=== PATIENT | male | born 2000 | race Caucasian/White ===

== ENCOUNTER 2020-11-22 16:31 | Emergency (ER) | payer OTHER, SELFPAY ==
--- NOTE | ~2020-11-22 | XR_ITS ---
XR abdomen/kub 1V 11/22/2020 17:08 INDICATION: Left kidney stone TECHNIQUE: KUB COMPARISON: None FINDINGS: Bowel gas pattern is normal. There is no evidence of free air, mass, organomegaly, ascites or obstruction. No abnormal calculi are seen. There is a sclerotic lesion of the proximal aspect of the right femur beginning at the level of the lesser trochanter. There is central lytic defect withi n the sclerotic margins. IMPRESSION: 1: No acute abdominal abnormality identified. 2: Mixed lytic/sclerotic lesion proximal aspect of the right femur, most likely benign. Consider cor relation with bone scan to assess for abnormal uptake. Reviewed, dictated and finalized at location A. IMPRESSION: 1: No acute abdominal abnormality identified. 2: Mixed lytic/sclerotic lesion proximal aspect of the right femur, most likel y benign. Consider correlation with bone scan to assess for abnormal uptake.
[2020-11-22 16:35] VITALS: BP 142/76; PULSE 89; RESP 14; TEMP 36.2; O2SAT 99
--- NOTE | 2020-11-22 16:47 | ED.GENADULT ---
HPI - General Adult General Chief complaint: Abdominal Pain Stated complaint: abd pain hx stones Time Seen by Provider: 11/22/20 16:37 Source: RN notes reviewed History of Present Illness HPI narrative: Patient presents emergency department from home for left-sided abdominal pain. Patient states that approximately 330pm he had a severe episode of left-sided abdominal pain that was described as sharp and stabbing and did not radiate pain lasted approximately 30 minutes and then resolved on its own. Patient denies having pain at this time he denies any fevers or chills, chest pain shortness of breath nausea vomiting diarrhea or any other symptoms. Patient states on Friday he had a CT scan showing a left-sided kidney stone but had no pain since that diagnosis Related Data Allergies Allergy/AdvReac Type Severity Reaction Status Date / Time No Known Allergies Allergy Verified 11/22/20 16:38 Review of Systems Review of Systems: Narrative: Gen.: Denies fevers or chills ENT: Denies congestion Respiratory: Denies shortness of breath or cough CV: Denies chest pain or palpitations GI: See HPI denies burning, urgency, frequency or hematuria Musculoskeletal: Denies back pain or muscle pain Neuro: Denies numbness, tingling, weakness or focal weakness Skin: Denies rash Except as documented, all other systems reviewed and negative [facility] Past Medical History Medical History (Updated 11/22/20 @ 18:14 by Andrés Painting DO) Kidney stone on left side Social History Social History (Updated 11/22/20 @ 16:48 by Andrés Painting DO) Smoking status: Never smoker Exam Narrative: Exam Narrative: APPEARANCE: No acute distress, nontoxic, resting in bed EYES: EOMI HEENT: Normocephalic, atraumatic, OMM RESPIRATORY: No respiratory distress Clear to auscultation bilaterally with no rhonchi wheezing or rales. CARDIOVASCULAR: Regular rate and rhythm without murmurs rubs or gallops. ABDOMINAL: Soft, nontender, nondistended, no rebound or guarding no flank tenderness MUSCULOSKELETAl: Moves all extremities. No clubbing, cyanosis or edema. NEURO: Awake and alert. Following commands, speech normal, no focal deficits SKIN:: Warm, dry. No rashes lesions or abrasions PSYCHIATRIC: Normal affect/mood, Course Course Emergency Course: Obtain [facility] scan from [facility] done on 11/20/2020 showing a 6 mm stone within the left renal pelvis no hydronephrosis Patient has had no pain while in the emergency department Discussed with patient results of workup and diagnosis. Discussed need for follow-up with primary care, proper use of medication, and reasons to return to the emergency department. Patient understands and agrees to current treatment plan Vital Signs Vital signs: Vital Signs Temperature 97.1 F L 11/22/20 16:35 Pulse Rate 89 11/22/20 16:35 Respiratory Rate 14 11/22/20 16:35 Blood Pressure 142/76 H 11/22/20 16:35 Pulse Oximetry 99 11/22/20 16:35 Temperature 97.7 F 11/22/20 16:53 Pulse Rate 85 11/22/20 16:53 Respiratory Rate 18 11/22/20 16:53 Blood Pressure 140/78 11/22/20 16:53 Pulse Oximetry 99 11/22/20 16:53 Medical Decision Making MDM Narrative Medical decision making narrative: Patient presents with 30 minutes of pain is now resolved had a CT scan on the showing a left-sided kidney stone patient on work-up today has blood in urine other lab results within normal limits pain-free throughout stay in ED. Discussed with patient and family who are present and I believe the risks outweigh the benefits of repeat CT scans the patient is had no pain and no signs of infection suspect a partially passed or fully passed kidney stone which I discussed with the family all the family discharged to follow-up with urology as outpatient Vital Signs Vital Signs: Vital Signs Temperature 97.1 F L 11/22/20 16:35 Pulse Rate 89 11/22/20 16:35 Respiratory Rate 14 11/22/20 16:35 Blood Pressure
[2020-11-22 16:53] VITALS: BP 140/78; PULSE 85; RESP 18; TEMP 36.5; O2SAT 99
[2020-11-22 17:08] LABS: Add Urine Microscopic? YES; Appearance Urine Cloudy (Clear); Bilirubin Urine Negative (Negative); Blood Urine 3+ (Negative); Color Urine Yellow (Yellow); Glucose Urine UA Negative (Negative); Ketones Urine Negative (Negative); Leukocyte Esterase Ur Negative LEU/UL (Negative); Mucus Urine Rare /lpf; Nitrate Urine Negative (Negative); Protein Urine 1+ mg/dL (Negative); RBC Urine >75 /hpf (0-2); Specific Grav Ur 1.017 (1.001-1.035); Urobilinogen Urine Negative mg/dL (<2.0); WBC Urine 0-3 /hpf
[2020-11-22 17:35] LABS: Basophils Percent Auto 0.4 % (0.2-1.2); Eosinophils Absolute Auto 0.2 K/mm3 (0-0.3); Eosinophils Percent Auto 1.4 % (0-4.4); Hematocrit 47.3 % (42.0-52.0); Hemoglobin 16.5 g/dL (14.0-18.0); Immature Granulocyte Absolute 0.05 K/mm3 (0.00-0.031); Immature Granulocyte Percent A 0.4 % (0-0.5); Lymphocytes Percent Auto 10.5 % (18.3-44.2); Mean Corpuscular HGB Conc 34.9 g/dl (32-36); Mean Corpuscular Hemoglobin 31.1 pg (26-34); Mean Corpuscular Volume 89.1 fl (80-100); Mean Platelet Volume 9.6 fl (7.4-10.4); Monocytes Absolute Auto 0.7 K/mm3 (0.1-0.6); Monocytes Percent Auto 6.2 % (2.6-8.5); Neutrophils Absolute Auto 9.2 K/mm3 (1.3-6.7); Neutrophils Percent Auto 81.1 % (45.5-73.1); Platelet Count Result 248 k/mm3 (150-375); Red Blood Count 5.31 M/mm3 (4.6-6.20); Red Cell Distribution Width 11.9 % (11.5-14.5); White Blood Count 11.4 K/mm3 (4.5-10.0)
[2020-11-22 17:46] LABS: Alanine Aminotransferase 72 U/L (4-50); Albumin Level 4.7 g/dL (3.5-5.1); Alkaline Phosphatase 59 U/L (38-126); Anion Gap 6 mmol/L (8-16); Aspartate Amino Transferase 40 U/L (17-59); Bilirubin,Total 0.4 mg/dL (0.2-1.3); Blood Urea Nitrogen 13 mg/dL (9-20); Calcium 9.5 mg/dL (8.4-10.2); Carbon Dioxide 30 mmol/L (22-30); Chloride 104 mmol/L (98-107); Estimated CRCL calculation 131 ml/min; Estimated Glomerular Filt Rate > 60; Glucose 100 mg/dL (75-110); Potassium 3.8 mmol/L (3.4-5.0); Sodium 140 mmol/L (137-145)
[2020-11-22 18:26] VITALS: BP 122/68; PULSE 70; RESP 16; O2SAT 99
== END 2020-11-22 18:27 | disposition home or self-care (01) ==
PROVIDERS: Emergency Provider Emergency Medicine; PCP Family Medicine
DX: N20.0 Calculus of kidney (principal); Z87.442 Personal history of urinary calculi
CPT/HCPCS: 36415; 74018; 80053; 81001; 85025; 99283

== ENCOUNTER 2020-11-26 23:53 | Observation (INO) | payer OTHER, SELFPAY ==
--- NOTE | ~2020-11-26 | XR_ITS ---
EXAMINATION: XR abdomen/kub 1V DATE: 11/27/2020 02:10 INDICATION: Left flank pain. TECHNIQUE: A supine view of the abdomen on 2 radiographs was obtained. COMPARISON: CT abdomen and pelvis 11/27/2020 FINDINGS: There are no dilated loops of bowel. There is a 4 mm stone in proximal left ureter. There i s a nonaggressive lytic lesion with sclerotic margin in subtrochanteric region of proximal right femu r, likely fibrous dysplasia. IMPRESSION: 1. 4 mm stone in proximal left ureter. Reviewed, dictated and finalized at location A.
--- NOTE | ~2020-11-26 | XR_ITS ---
EXAMINATION: XR retrograde pyelo w/stent LT EXAM DATE: 11/27/2020 14:17 INDICATION: Retrograde cystogram, left-sided stent. TECHNIQUE: Fluoroscopy used during XR retrograde pyelo w/stent LT performed by Dr. Otto Ramirez MD, urologist. The radiologist Mathew Mays M.D. dictating this report of the image(s) available wa s not present for the procedure. Total fluoroscopic time of 25 seconds. The DAP for this procedure was 365 radcm2. A total of 34 images obtained for the exam. Cine run(s) available for review. Fariba elation is made to KUB 11/27/2020. FINDINGS: Possible identification of the suspected left proximal ureteral stone on a note teller image. Le ft ureter was cannulated, injected. There is mild left hydronephrosis. Some gas introduced into the u reter. A double-J ureteral stent was positioned. Correlate with procedure note. IMPRESSION: Mild left hydronephrosis. Stent in position. Reviewed, dictated and finalized at location A.
--- NOTE | ~2020-11-26 | CT_ITS ---
EXAMINATION: CT abdomen pelvis wo con DATE: 11/27/2020 00:49 INDICATION: Left flank pain. TECHNIQUE: Computed tomography (CT) of the abdomen and pelvis was performed without intravenous contr ast. Automated exposure control and iterative reconstruction technique were employed. The dose-length product was 592.72 mGy-cm. COMPARISON: None. FINDINGS: The visualized portions of the lung bases demonstrate minimal atelectasis. No pleural effus ion. The heart size is normal. No pericardial effusion. The liver, gallbladder, spleen, pancreas, adr enal glands, and right kidney are normal. There is mild left hydronephrosis. There is a 4 mm stone in proximal left ureter. There are no dilated loops of bowel. The appendix is normal. There are no path ologically enlarged lymph nodes. There is no free intraperitoneal fluid. There is a 2.6 cm nonaggress hannah lytic lesion in subtrochanteric region of proximal right femur with sclerotic margin and groundgl ass matrix, likely fibrous dysplasia. There are chronic bilateral L5 pars defects. No spondylolisthes is. IMPRESSION: 1. 4 mm stone in proximal left ureter with mild left hydronephrosis. Reviewed, dictated and finalized at location A.
[2020-11-27] VITALS (30 sets, daily range): BP systolic 109–150; BP diastolic 58–88; PULSE 56–80; RESP 13–20; TEMP 36.5–37.1; O2SAT 94–100; BMI 28.4
--- NOTE | 2020-11-27 00:48 | PC.NURSE ---
Patient in CT at this time.
[2020-11-27 00:50] LABS: Add Urine Microscopic? YES; Appearance Urine Clear (Clear); Bacteria Urine Trace /hpf; Bilirubin Urine Negative (Negative); Blood Urine 3+ (Negative); Color Urine Colorless (Yellow); Glucose Urine UA Negative (Negative); Ketones Urine Negative (Negative); Leukocyte Esterase Ur Negative LEU/UL (Negative); Nitrate Urine Negative (Negative); Protein Urine Negative (Negative); Urobilinogen Urine Negative mg/dL (<2.0); WBC Urine 0-3 /hpf
[2020-11-27] MEDS: MORPHINE SULFATE (*CRX) 4 MG/ML INJ IV PUSH (00:55)
[2020-11-27] MEDS: SODIUM CHLORIDE 0.9% IV 1,000 ML 999 ML IV CONT (00:55)
[2020-11-27] MEDS: ONDANSETRON INJ 4 MG/2 ML VIAL IV PUSH (00:55)
[2020-11-27 01:03] LABS: Specific Grav Ur 1.004 (1.001-1.035)
[2020-11-27 01:15] LABS: Basophils Percent Auto 0.2 % (0.2-1.2); Eosinophils Absolute Auto 0.3 K/mm3 (0-0.3); Eosinophils Percent Auto 2.1 % (0-4.4); Hematocrit 44.4 % (42.0-52.0); Hemoglobin 15.4 g/dL (14.0-18.0); Immature Granulocyte Absolute 0.03 K/mm3 (0.00-0.031); Immature Granulocyte Percent A 0.2 % (0-0.5); Lymphocytes Absolute Auto 1.81 K/mm3 (0.9-3.2); Lymphocytes Percent Auto 14.9 % (18.3-44.2); Mean Corpuscular HGB Conc 34.7 g/dl (32-36); Mean Corpuscular Hemoglobin 30.7 pg (26-34); Mean Corpuscular Volume 88.4 fl (80-100); Mean Platelet Volume 9.8 fl (7.4-10.4); Monocytes Percent Auto 8.6 % (2.6-8.5); Platelet Count Result 275 k/mm3 (150-375); Red Blood Count 5.02 M/mm3 (4.6-6.20); Red Cell Distribution Width 11.6 % (11.5-14.5); White Blood Count 12.1 K/mm3 (4.5-10.0)
[2020-11-27 01:24] LABS: Carbon Dioxide 31 mmol/L (22-30); Chloride 103 mmol/L (98-107); Potassium 3.8 mmol/L (3.4-5.0); Sodium 140 mmol/L (137-145)
[2020-11-27 01:25] LABS: Anion Gap 6 mmol/L (8-16); Blood Urea Nitrogen 18 mg/dL (9-20); Calcium 9.3 mg/dL (8.4-10.2); Estimated CRCL calculation 77 ml/min; Estimated Glomerular Filt Rate > 60; Glucose 108 mg/dL (75-110)
--- NOTE | 2020-11-27 01:59 | ED.GENADULT ---
HPI - General Adult General Chief complaint: Back Pain/Injury Stated complaint: L FLANK PAIN, HX KIDNEY STONES Time Seen by Provider: 11/27/20 00:36 History of Present Illness HPI narrative: Patient 20-year-old gentleman who presents the emergency department with chief complaint of left-sided flank pain. Patient reports he has recent history of a kidney stone and is to see Dr. Sorto in the office this week patient reports that he was seen at an outlying facility treated with pain medications and then was seen in the emergency department here on the after he started having pain again. The patient reports the pain spontaneously resolved and was able to be discharged home at that time. The patient states this evening around 5 PM he started having severe pain in his left flank states that is not improved by anything nor is it worsened by pain. Related Data Home Medications Medication Instructions Recorded Confirmed cefdinir mg 11/27/20 Allergies Allergy/AdvReac Type Severity Reaction Status Date / Time No Known Allergies Allergy Verified 11/27/20 00:16 Review of Systems Review of Systems: Narrative: A 10 system review of systems was completed on the patient and is negative except for what is stated in the HPI. Nursing and ancillary documentation was reviewed. PENDING SALE TO [facility] Past Medical History Medical History Kidney stone on left side Social History Social History Smoking status: Never smoker Exam Narrative: Exam Narrative: GENERAL: Well-appearing, well-nourished, and in no acute distress. HEAD: Normocephalic, atraumatic. EYES: PERRLA and EOMI. ENT: Nares clear, no rhinorrhea or epistaxis. Mucous membranes moist. NECK: Supple. CHEST: Clear to auscultation. No respiratory distress. HEART: Regular rate and rhythm. No murmur heard. Normal peripheral pulses. ABDOMEN: Soft, nontender, nondistended, normal active bowel sounds. EXTREMITIES: Normal range of motion. No edema. SKIN: Warm, dry, no rash. NEURO: No focal deficits. Alert and oriented x3. PSYCH: Normal mood and affect. Course Course Emergency Course: The patient's pain was improved in the emergency department the case was discussed with Dr. Ramirez who is on-call for urology the patient will be admitted to the urological service for further management. Vital Signs Vital signs: Vital Signs Temperature 36.5 C 11/27/20 00:14 Pulse Rate 72 11/27/20 00:14 Respiratory Rate 16 11/27/20 00:14 Blood Pressure 150/70 H 11/27/20 00:14 Pulse Oximetry 99 11/27/20 00:14 Temperature 36.5 C 11/27/20 00:14 Pulse Rate 66 11/27/20 00:30 Respiratory Rate 20 11/27/20 00:30 Blood Pressure 143/82 H 11/27/20 00:30 Pulse Oximetry 99 11/27/20 00:30 Medical Decision Making Vital Signs Vital Signs: Vital Signs Temperature 36.5 C 11/27/20 00:14 Pulse Rate 72 11/27/20 00:14 Respiratory Rate 16 11/27/20 00:14 Blood Pressure 150/70 H 11/27/20 00:14 Pulse Oximetry 99 11/27/20 00:14 Temperature 36.5 C 11/27/20 00:14 Pulse Rate 66 11/27/20 00:30 Respiratory Rate 20 11/27/20 00:30 Blood Pressure 143/82 H 11/27/20 00:30 Pulse Oximetry 99 11/27/20 00:30 Lab Data Result diagrams: 11/27/20 00:54 11/27/20 00:55 Labs: Lab Results 11/27/20 11/27/20 11/27/20 Range/Units 00:40 00:54 00:55 WBC 12.1 H (4.5-10.0) K/mm3 RBC 5.02 (4.6-6.20) M/mm3 Hgb 15.4 (14.0-18.0) g/dL Hct 44.4 (42.0-52.0) % MCV 88.4 (80-100) fl MCH 30.7 (26-34) pg MCHC 34.7 (32-36) g/dl RDW 11.6 (11.5-14.5) % Plt Count 275 (150-375) k/mm3 MPV 9.8 (7.4-10.4) fl Immature Gran % (Auto) 0.2 (0-0.5) % Neut % (Auto) 74.0 H (45.5-73.1) % Lymph % (Auto) 14.9 L (18.3-44.2) % [place] % (Auto) 8.6 H (2.6-8.5) % Eos % (Auto)
[2020-11-27] MEDS: SODIUM CHLORIDE 0.9% IV 1,000 ML 125 ML IV CONT (03:45)
--- NOTE | 2020-11-27 04:02 | ADMGEN ---
This patient, Nasri Pruitt, was admitted to [facility] Surg Room 319-01. Patient/family oriented to hospital policies and general routines including ID bracelet, bed and alarms, visiting hours, pain management, procedures, bathroom and other care routines, personal items, smoking policy, room service/diet, and visiting hours. Information on how to activate the Rapid Response Team has been discussed. Patient/Family are encouraged to report perceived risks to care and to ask questions if they do not understand what they are told or what they should do.
--- NOTE | 2020-11-27 07:57 | WPDANESEPPF ---
Anes - Initial Pre Proc Eval Procedure: Operation Date: 11/27/20 14:30 Proposed Procedures p Cystoscopy, Left Stent Placement, Possible Left Ureteroscopy with Stone Extraction(Left) - Otto Ramirez MD <Dar Florence MD - Last Filed: 11/30/20 16:12> Date/Time: 11/27/20 07:57 <Dar Florence MD - Last Filed: 11/30/20 16:12> Surgeon: Otto Ramirez MD <Dar Florence MD - Last Filed: 11/30/20 16:12> Pre Op Diagnosis: Left obstructing ureteral lithiasis <Dar Florence MD - Last Filed: 11/30/20 16:12> Patient Data Age: 20 Gender: M Height: 1.78 m Weight: 89.9 kg <Dar Florence MD - Last Filed: 11/30/20 16:12> Last Vital Signs Temp 36.7 C 11/27/20 06:00 Pulse 71 11/27/20 06:00 Resp 20 11/27/20 06:00 BP 128/65 11/27/20 06:00 Pulse Ox 99 11/27/20 06:00 <Dar Florence MD - Last Filed: 11/30/20 16:12> Allergies Allergy/AdvReac Type Severity Reaction Status Date / Time No Known Allergies Allergy Verified 11/27/20 00:16 <Dar Florence MD - Last Filed: 11/30/20 16:12> Home Medications Medication Instructions Recorded Confirmed Type ibuprofen [IBU] 600 mg PO Q6H PRN #20 tablet 11/22/20 11/27/20 Rx hydrocodone-acetaminophen 1 tablet PO Q4H PRN #30 tablet 11/27/20 Rx oxybutynin chloride 5 mg PO TID #60 tablet 11/27/20 Rx phenazopyridine [Pyridium] 200 mg PO TID PRN #30 tablet 11/27/20 Rx <Dar Florence MD - Last Filed: 11/30/20 16:12> Laboratory Tests 11/27/20 11/27/20 11/27/20 00:40 00:54 00:55 WBC 12.1 K/mm3 H K/mm3 (4.5-10.0) RBC 5.02 M/mm3 M/mm3 (4.6-6.20) Hgb 15.4 g/dL g/dL (14.0-18.0) Hct 44.4 % % (42.0-52.0) MCV 88.4 fl fl (80-100) MCH 30.7 pg pg (26-34) MCHC 34.7 g/dl g/dl (32-36) RDW 11.6 % % (11.5-14.5) Plt Count 275 k/mm3 k/mm3 (150-375) MPV 9.8 fl fl (7.4-10.4) Immature Gran % (Auto) 0.2 % % (0-0.5) Neut % (Auto) 74.0 % H % (45.5-73.1) Lymph % (Auto) 14.9 % L % (18.3-44.2) G[place]pie % (Auto) 8.6 % H % (2.6-8.5) Eos % (Auto) 2.1 % % (0-4.4) Baso % (Auto) 0.2 % % (0.2-1.2) Lymph # (Auto) 1.81 K/mm3 K/mm3 (0.9-3.2) Gillespie # (Auto) 1.0 K/mm3 H K/mm3 (0.1-0.6) Eos # (Auto) 0.3 K/mm3 K/mm3 (0-0.3) Baso # (Auto) 0.0 K/mm3 K/mm3 (0.0-0.1) Abs Immat Gran (auto) 0.03 K/mm3 K/mm3 (0.00-0.031) Absolute Neuts (auto) 9.0 K/mm3 H K/mm3 (1.3-6.7) Absolute Nucleated RBC 0.0 K/mm3 K/mm3 (0.0-0.012) Nucleated RBC % 0.0 % % (0.0-0.2) Sodium 140 mmol/L mmol/L (137-145) Potassium 3.8 mmol/L mmol/L (3.4-5.0) Chloride 103 mmol/L mmol/L (98-107) Carbon Dioxide 31 mmol/L H mmol/L (22-30) Anion Gap 6 mmol/L L mmol/L (8-16) BUN 18 mg/dL mg/dL (9-20) Creatinine 1.40 mg/dL H mg/dL (0.7-1.3) Estim Creat Clear Calc 77 ml/min ml/min Estimated GFR > 60 (59 - ) Glucose 108 mg/dL mg/dL (75-110) Calcium 9.3 mg/dL mg/dL (8.4-10.2) Urine Color Colorless (Yellow) Urine Appearance Clear (Clear) Urine pH 7.0 (5.0-9.0) Ur Specific [place] 1.004 (1.001-1.035) Urine Protein Negative mg/dL mg/dL (Negative) Urine Glucose (UA) Negative mg/dL mg/dL (Negative) Urine Ketones Negative mg/dL mg/dL (Negative) Ur Blood (Man) 3+ H (Negative) Urine Nitrate Negative (Negative) Urine Bilirubin Negative (Negative) Urine Urobilinogen Negative mg/dL mg/dL (<2.0) Leukocyte Esterase Rfl Negative PASHA/UL PASHA/UL (Negative) Urine WBC 0-3 /hpf /hpf Urine Bacteria Trace /hpf /hpf
--- NOTE | 2020-11-27 09:29 | WPDURCON ---
Assessment and Plan Assessment and plan (1) Kidney stone on left side: Code(s): N20.0 - Calculus of kidney Status: Acute Assessment and Plan: Obtain Consent: Cystoscopy, left ureteroscopy with possible stone extraction, left stent placement, left retrograde pyelogram, possible holmium laser. Keep NPO. Plan to go to the OR today with Dr. Ramirez at 14:30. Urology Consult Note HPI Date Seen: 11/27/20 Requesting Physician: Otto Ramirez MD Primary Care Provider: Maribel Mack, Consult Narrative Narrative: Nasir Pruitt is a 20 year old male who initially presented to the ER on 11/22/2020 with LLQ pain that became severe, it subsided while in the ER. He was diagnosed with a 4mm proximal left ureteral stone with mild hydronephrosis and discharged home with Cefdinir and pain medications to follow up with Dr. Hill, which is scheduled for tomorrow. However, last night around 5pm the LLQ pain returned acutely and was intolerable of pain medication so he proceeded back to the ER. His CT scan this morning shows the persistent 4mm left stone. His UA is improved from last week and now only shows 3+ blood on Cefdinir. His Creatinine is increased from 5 days ago when it was 0.80 and is now 1.40. His WBC is slightly elevated at 12.1. He denies fever, dysuria, hematuria, chills, nausea or vomiting today, but states he vomited last night. He also denies a history of UTI's or stones previously. No other stones are visible on his CT scan. KUB was done on 11/22/2020 but the stone was not visible. Review of Systems Cardiovascular: Cardiovascular: Denies chest pain Respiratory: Respiratory: Reports no additional respiratory complaints Gastrointestinal: Gastrointestinal: Reports abdominal pain, Denies nausea and Denies vomiting Genitourinary: Genitourinary: Denies hematuria, Denies dysuria, Denies flank pain, Denies urinary frequency and Denies urinary hesitancy [facility] Past Medical History Medical History Kidney stone on left side Social History Social History Smoking status: Never smoker Second hand tobacco smoke exposure: No Alcohol intake: never Substance use: former Gender identity (if verbalized by the patient): Male Sexual Orientation (if Verbalized by the Patient): Straight or Heterosexual Spiritual care concerns: No Meds Home Medications and Allergies Home Medications Medication Instructions Recorded Confirmed Type ibuprofen [IBU] 600 mg PO Q6H PRN #20 tablet 11/22/20 11/27/20 Rx cefdinir mg 11/27/20 History Allergies Allergy/AdvReac Type Severity Reaction Status Date / Time No Known Allergies Allergy Verified 11/27/20 00:16 Vital Signs Vital Signs - 24 hr 11/27/20 00:14 11/27/20 00:30 11/27/20 00:32 Temperature 97.7 F Pulse Rate 72 66 Respiratory Rate 16 20 Blood Pressure 150/70 H 143/82 H 143/82 H Pulse Oximetry 99 98 98 11/27/20 00:52 11/27/20 01:00 11/27/20 01:03 Temperature Pulse Rate Respiratory Rate Blood Pressure 132/80 Pulse Oximetry 97 99 97 11/27/20 01:15 11/27/20 01:30 11/27/20 01:31 Temperature Pulse Rate Respiratory Rate Blood Pressure 133/84 Pulse Oximetry 98 98 97 11/27/20 01:45 11/27/20 02:09 11/27/20 02:11 Temperature Pulse Rate Respiratory Rate Blood Pressure 125/71 Pulse Oximetry 97 98 98 11/27/20 02:12 11/27/20 02:15 11/27/20 02:30 Temperature Pulse Rate 64 Respiratory Rate 18 Blood Pressure 134/79 Pulse Oximetry 97 97 97 11/27/20 03:32 11/27/20 03:40 11/27/20 06:00 Temperature 97.9 F 98.4 F 98.0 F Pulse Rate 65 64 71 Respiratory Rate 18 20 20 Blood Pressure 125/75 122/59 L 128/65 Pulse Oximetry 99 98 99 11/27/20 07:50 Temperature 98.5 F Pulse Rate 70 Respiratory Rate 18 Blood Pressure 109/58 L Pulse Oximetry 98 Exam Resp:
--- NOTE | 2020-11-27 10:48 | WPDHPUPDATE1 ---
History and Physical Update Update Date/Time: 11/27/20 10:48 History and Physical has been reviewed, including an updated exam of the patient. There are NO changes in the patient's condition. Risks, benefits, and alternatives have been discussed and questions answered. Patient agrees to proceed with procedure.
[2020-11-27] MEDS: ceFAZolin 2 GM/D5W 50 ML 2 GM/50 ML BAG IVPB (13:52)
--- NOTE | 2020-11-27 14:13 | SUR.OPER ---
4.8FR CONTOUR STENT LEFT URETER lOT [id number], EXP 09-04-23
[2020-11-27] MEDS: LIDOCAINE HCL 2% GEL UROJET 10 ML PKG MUCOUS MEM (14:16)
--- NOTE | 2020-11-27 14:17 | PM.PROC ---
Procedure Note - Detailed Date of procedure: 11/27/20 Pre-op diagnosis: Left obstructing ureteral lithiasis Post-op diagnosis: same Procedure performed: Cystoscopy, left retrograde pyelogram, left ureteroscopy, left stent placement Description of procedure: He was correctly identified. Informed consent obtained. Brought to the operating room. He was given general anesthesia. He was given appropriate perioperative antibiotics. He was prepped and draped in a sterile fashion. Time-out performed. Cystoscopy revealed a normal-appearing bladder. No bladder abnormalities. I did retrograde pyelogram on the left. He had a very delicate distal ureter. Stone could be seen on machine maintenance mechanic radiograph. He had hydronephrosis proximal to the stone. With some difficulty I was able to negotiate a guidewire to the kidney. I then attempted to perform ureteroscopy. I was unable to get ureteral scope past the vessels. I did not want to traumatize the ureter. Again he had very thin delicate ureters. I elected to place a stent. I placed a 4.8 variable length stent. Proximal coil in a purple kidney. Distal coil in the bladder. He was awakened transferred the PACU in stable condition. Anesthesia: GLMA Surgeon: Otto Ramirez MD Estimated blood loss (mL): 0 Drains: Yes (4.8 variable length stent) Packing: No Pathology: none sent Complications: No immediate complications Condition: stable Disposition: PACU
[2020-11-27] MEDS: LACTATED RINGERS 1,000 ML 30 ML IV CONT (14:20)
[2020-11-27] MEDS: fentaNYL CITRATE INJ (*CRX) 100 MCG/2 ML VIAL 25 MCG IV PUSH ×2 (14:54→14:56)
--- NOTE | 2020-11-27 14:56 | PC.NURSE ---
Returned from OR. Report received from [Christoph].
[2020-11-27] MEDS: HYDROcodone/acetaminophen (*CRX) 5-325 MG TABLET 2 TAB PO (15:37)
[2020-11-27] MEDS: OXYBUTYNIN CHLORIDE 5 MG TABLET PO (16:07)
[2020-11-27] MEDS: PHENAZOPYRIDINE HCL 100 MG TABLET 200 MG PO (16:07)
--- NOTE | 2020-12-04 08:10 | PM.DS ---
DS: Discharge Diagnosis Discharge Diagnosis (1) Kidney stone on left side: Code(s): N20.0 - Calculus of kidney Status: Acute DS: Summary Time Spent with Patient Time attestation: Total time spent providing and/or coordinating discharge services: Discharge Plan Discharge Attending physician on discharge: Otto Ramirez Consulting providers: Mathew Mays ; Charla Gonzales ; Mik Chaney V. Discharging Clinician: Otto Ramirez Anticipated Discharge Date/Time: 11/27/20 14:21 Patient Disposition: Home, Self-Care Activity: december shower Diet: as tolerated Patient Instructions: Antibiotic Form, Kidney Stones (GEN), Cystoscopy (GEN) Stand Alone Forms: General Discharge Information Follow-up/Referrals: Otto Ramirez MD [Physician] - (We will call to arrange stone procedure) Discharge Medications: New phenazopyridine [Pyridium] 200 mg tablet 200 mg PO TID PRN (Reason: pain) Qty: 30 RF: 0 oxybutynin chloride 5 mg tablet 5 mg PO TID Qty: 60 RF: 0 hydrocodone-acetaminophen 5-325 mg tablet 1 tablet PO Q4H PRN (Reason: pain) Qty: 30 RF: 0 Continued ibuprofen [IBU] 600 mg tablet 600 mg PO Q6H PRN (Reason: pain) Qty: 20 RF: 0 Discontinued cefdinir 300 mg capsule RF: 0 Date of admission: 11/27/20 01:56 Primary Care Provider: MartinaMaribel Admitting Provider: Otto Ramirez Attending physician on admission: Otto Ramirez Condition: Stable
--- NOTE | 2020-12-04 12:31 | PM.DS ---
DS: Admitting Diagnosis Admitting Diagnosis Admitting Diagnosis: Ureteral stone DS: Discharge Diagnosis Discharge Diagnosis (1) Ureteral stone: Code(s): N20.1 - Calculus of ureter Status: Acute DS: Summary Hospital Course Hospital Course: He underwent uncomplicated ureteral stent placement. He was sent home in stable condition. Definitive stone management to follow. Time Spent with Patient Time attestation: Total time spent providing and/or coordinating discharge services: 10 minutes Patient was admitted with nephrolithiasis. He was taken to the operating room the next day for a left ureteral stent placement. He will have definitive stone procedure to follow. He tolerated the procedure well. He was sent home in stable condition. Exam Const: General: cooperative HENMT: Mouth: Yes Normal oral and palatal mucosa present Eyes: General: appearance normal, both eyes and all related structures Resp: Effort & Inspection: normal respiratory effort and able to speak in complete sentences GI: Inspection: normal to inspection Discharge Plan Discharge Attending physician on discharge: Otto Ramirez Consulting providers: Mathew Mays ; Charla Gonzales ; Mik Chaney V. Discharging Clinician: Otto Ramirez Anticipated Discharge Date/Time: 11/27/20 14:21 Patient Disposition: Home, Self-Care Activity: december shower Diet: as tolerated Patient Instructions: Antibiotic Form, Kidney Stones (GEN), Cystoscopy (GEN) Stand Alone Forms: General Discharge Information Follow-up/Referrals: Otto Ramirez MD [Physician] - (We will call to arrange stone procedure) Discharge Medications: New phenazopyridine [Pyridium] 200 mg tablet 200 mg PO TID PRN (Reason: pain) Qty: 30 RF: 0 oxybutynin chloride 5 mg tablet 5 mg PO TID Qty: 60 RF: 0 hydrocodone-acetaminophen 5-325 mg tablet 1 tablet PO Q4H PRN (Reason: pain) Qty: 30 RF: 0 Continued ibuprofen [IBU] 600 mg tablet 600 mg PO Q6H PRN (Reason: pain) Qty: 20 RF: 0 Discontinued cefdinir 300 mg capsule RF: 0 Date of admission: 11/27/20 01:56 Primary Care Provider: Martina,Maribel Admitting Provider: Otto Ramirez Attending physician on admission: Otto Ramirez Condition: Stable
== END 2020-11-27 18:05 | disposition home or self-care (01) ==
LOC: ANHED 11-27 02:00 → ANH3MEDSUR 11-27 03:19
PROVIDERS: Admitting Provider Urology; Emergency Provider Emergency Medicine; PCP Family Medicine; Visit Provider Urology
PROC: (CPT 52352; principal; 2020-11-27 14:30)
DX: N13.2 Hydronephrosis with renal and ureteral calculous obstruction (principal)
CPT/HCPCS: 52332; 36415; 74018; 74176; 74420; 80048; 81001; 85025; 96361; 96374; 96375; 99285; A9270; C1769; C2617; G0378; J0690; J2250; J2270; J2405; J2704; J3010; J7030; J7120; Q9966

== ENCOUNTER → 2020-12-19 04:08 | Outpatient (CLI) | payer OTHER, SELFPAY ==
[2020-12-19 20:06] LABS: SARS-CoV-2 RNA PCR Negative
== END ==
PROVIDERS: PCP Family Medicine; Visit Provider Urology
DX: Z01.812 Encounter for preprocedural laboratory examination (principal); Z20.822 Contact with and (suspected) exposure to COVID-19
CPT/HCPCS: C9803; U0003; U0005

== ENCOUNTER 2020-12-19 10:00 | Outpatient (CLI) | payer OTHER, SELFPAY ==
[2020-12-19 10:32] LABS: INR 0.9; Prothrombin Time 12.8 Seconds (11.1-14.7)
[2020-12-19 10:33] LABS: Partial Thromboplastin Time 27.5 SECONDS (22.3-36.8)
== END 2020-12-19 10:01 | disposition home or self-care (01) ==
LOC: ANHSURGERY 10:03
PROVIDERS: Anesthesiology; PCP Family Medicine; Visit Provider Urology
DX: Z01.812 Encounter for preprocedural laboratory examination (principal); N20.1 Calculus of ureter; Z51.81 Encounter for therapeutic drug level monitoring; Z79.899 Other long term (current) drug therapy
CPT/HCPCS: 36415; 85610; 85730; 87086

== ENCOUNTER 2020-12-22 02:22 | Day surgery (SDC) | payer OTHER, SELFPAY ==
[2020-12-11 13:36] VITALS: BMI 27.1
--- NOTE | 2020-12-15 08:40 | P.HP_ITS ---
History of Present Illness History of Present Illness Consent: Risks, benefits, and alternatives have been discussed and questions answered. Patient agrees to proceed with procedure. Chief complaint: left ureteral stone Narrative: Nasir Pruitt is a 20 year old male without prior significant history urolithiasis presented to the emergency department several weeks ago with left renal colic. Imaging revealed a 5 mm obstructing ureteral calculus. Ureteral stent was placed and he now presents for definitive left ESWL. He is aware the risks, including but not limited to, adverse cardiopulmonary events, perinephric hematoma, renal injury and failure to completely treat the stone. Review of Systems Cardiovascular: Cardiovascular: Denies chest pain, Denies lightheadedness, Denies palpitations and Denies dyspnea Respiratory: Respiratory: Denies dyspnea Gastrointestinal: Gastrointestinal: Denies diarrhea, Denies nausea and Denies vomiting Genitourinary: Genitourinary: Denies hematuria and Denies dysuria Endocrine: Endocrine: Denies palpitations PMFSH Past Medical History Medical History Kidney stone on left side Social History Social History Smoking status: Never smoker Second hand tobacco smoke exposure: No Alcohol intake: never Substance use: never Gender identity (if verbalized by the patient): Male Spiritual care concerns: No Meds Home Medications and Allergies Home Medications Medication Instructions Recorded Confirmed Type hydrocodone-acetaminophen 1 tablet PO Q4H PRN #30 tablet 11/27/20 12/11/20 Rx oxybutynin chloride 5 mg PO TID #60 tablet 11/27/20 12/11/20 Rx Allergies Allergy/AdvReac Type Severity Reaction Status Date / Time No Known Allergies Allergy Verified 11/27/20 00:16 Exam Const: General: no acute distress Resp: Effort & Inspection: normal respiratory effort GI: Inspection: non-distended GI Palp: No abdominal tenderness and No Guarding due to palpation present (GI) Auscultation: normal bowel sounds Assessment and Plan Assessment and plan (1) Ureteral stone: Code(s): N20.1 - Calculus of ureter Status: Acute Assessment and Plan: * Left ESWL
--- NOTE | 2020-12-21 12:24 | WPDANESEPPF ---
Anes - Initial Pre Proc Eval Procedure: Operation Date: 12/22/20 08:30 Proposed Procedures p Left Ureteral Extracorporeal Shock Wave Lithotripsy - Gonzalo Hill MD s Cystoscopy, Left Stent Removal - Gonzalo Hill MD Date/Time: 12/21/20 12:24 Surgeon: Gonzalo Hill MD Pre Op Diagnosis: left ureteral stone Patient Data Age: 20 Gender: M Height: 1.78 m Weight: 86 kg Allergies Allergy/AdvReac Type Severity Reaction Status Date / Time No Known Allergies Allergy Verified 12/22/20 07:29 Home Medications Medication Instructions Recorded Confirmed Type hydrocodone-acetaminophen 1 tablet PO Q4H PRN #30 tablet 11/27/20 12/22/20 Rx oxybutynin chloride 5 mg PO TID #60 tablet 11/27/20 12/22/20 Rx Patient hx anesthesia problems: none Family hx anesthesia problems: none [facility] Past Medical History Medical History Kidney stone on left side Social History Social History Smoking status: Never smoker Second hand tobacco smoke exposure: No Alcohol intake: never Substance use: never Living arrangements: with family Gender identity (if verbalized by the patient): Male Sexual Orientation (if Verbalized by the Patient): Straight or Heterosexual Spiritual care concerns: No Anes - Eval Final PreProcedure Day of Procedure 12/21/20 12:24 Patient weight: overweight Heart: regular rate and rhythm Lungs: clear to auscultation and normal air movement Airway: Mallampati scale class III Neurological: alert and oriented Last oral intake: >/= 8 hours ASA classification: II Emergent: no Anesthetic plan: proceed Anesthesia type and monitoring: general LMA and standard monitoring Informed Consent: The patient's anesthetic plan and its attendant risks and benefits were discussed with the patient/family/POA. Questions were solicited and answers provided to the satisfaction of the patient/family/POA.
[2020-12-22] VITALS (10 sets, daily range): BP systolic 110–160; BP diastolic 61–94; PULSE 63–96; RESP 12–20; TEMP 36–36.6; O2SAT 97–100
--- NOTE | ~2020-12-22 | XR_ITS ---
EXAMINATION: XR abdomen/kub 1V DATE: 12/22/2020 06:43 INDICATION: Kidney stone. TECHNIQUE: A supine view of the abdomen on 2 radiographs was obtained. COMPARISON: CT abdomen and pelvis 11/27/2020 FINDINGS: There are no dilated loops of bowel. There is a left internal ureteral stent in expected po sition. There is a 4 x 7 mm stone in proximal left ureter. IMPRESSION: 1. 4 x 7 mm stone in proximal left ureter with left internal ureteral stent in expected position. Reviewed, dictated and finalized at location [facility].
[2020-12-22] MEDS: LACTATED RINGERS 1,000 ML 30 ML IV CONT ×2 (07:05→09:44)
--- NOTE | 2020-12-22 07:12 | WPDHPUPDATE1 ---
History and Physical Update Update Date/Time: 12/22/20 07:12 History and Physical has been reviewed, including an updated exam of the patient. There are NO changes in the patient's condition. Risks, benefits, and alternatives have been discussed and questions answered. Patient agrees to proceed with procedure. In addition to left ESWL, will also plan cystoscopy with left ureteral stent removal.
[2020-12-22] MEDS: ceFAZolin 2 GM/D5W 50 ML 2 GM/50 ML BAG IVPB (08:35)
--- NOTE | 2020-12-22 09:13 | PM.OP ---
Procedure Note - Brief Procedure Note - Brief Date of procedure: 12/22/20 Pre-op diagnosis: left ureteral stone Post-op diagnosis: same Procedure performed: Cysto., left stent removal, left ESWL Description of procedure: The patient was brought to the operative suite where he was placed in the supine position on the Dornier lithotripter table. Flexible cystoscopy was undertaken with a 16F flexible cystoscopy. There were no urethral strictures. The prostatic urethra estimated length was 1.5cm. The bladder mucosa was normal and there was a single, orthotopic ureteral orifice bilaterally. The tip of the stent was grasped and it was removed with ease. The patient was then repositioned in the supine position with the focal point of the lithotriptor on a 6-7mm left mid-ureteral calculus. A total of 2500 shocks were delivered at a power setting of 4. There appeared to be good fragmentation of the stone. The patient tolerated the procedure well and was taken to the recovery room in good condition. Anesthesia: GLMA Surgeon: Gonzalo Hill MD Drains: No Packing: No Pathology: none sent Complications: No immediate complications Condition: stable Disposition: PACU
--- NOTE | 2020-12-22 09:21 | PM.PROC ---
Procedure Note - Detailed Date of procedure: 12/22/20 Pre-op diagnosis: left ureteral stone Procedure performed: Cysto., left stent removal, left ESWL Description of procedure: The patient was brought to the operative suite where he was placed in the supine position on the Dornier lithotripter table. Flexible cystoscopy was undertaken with a 16F flexible cystoscopy. There were no urethral strictures. The indwelling stent was removed with ease. The patient was then repositioned in the supine position with the focal point of the lithotriptor on a 6-7mm left mid-ureteral calculus. A total of 3000 shocks were delivered at a power setting of 6. There appeared to be good fragmentation of the stone. The patient tolerated the procedure well and was taken to the recovery room in good condition. Anesthesia: GLMA Surgeon: Gonzalo Hill MD Estimated blood loss (mL): 0 Drains: No Packing: No Pathology: none sent Complications: No immediate complications Condition: stable Disposition: PACU
[2020-12-22] MEDS: fentaNYL CITRATE INJ (*CRX) 100 MCG/2 ML VIAL 25 MCG IV PUSH ×2 (10:36→10:53)
--- NOTE | 2020-12-22 10:40 | SUR.PHASEI ---
PT SLEEPY, C/O PAIN TO LT FLANK /10. FENTANYL GIVEN PRN
--- NOTE | 2020-12-22 10:53 | SUR.PHASEI ---
PT SLEEPING. VERY RELAXED ASKED PT HOW PAIN IS. STATES 6/10. ITS A LITTLE WORSE FENTANYL GIVEN. PT BACK TO SLEEP.
--- NOTE | 2020-12-22 11:00 | SUR.PHASEI ---
PT DOZING IN INTERVALS. READY TO HAVE A DRINK IN [place]. STATES PAIN MODERATE
[2020-12-22] MEDS: oxyCODONE HCL (*CRX) 5 MG TAB IR PO (11:33)
== END 2020-12-22 12:05 | disposition home or self-care (01) ==
PROVIDERS: PCP Family Medicine; Visit Provider Urology
PROC: (CPT 50590; principal; 2020-12-22 08:30)
PROC: (CPT 52352; 2020-12-22 08:30)
DX: N20.1 Calculus of ureter (principal)
CPT/HCPCS: 50590; 52310; 36415; 74018; 85610; 85730; 87086; A9270; C9803; J0690; J1100; J2250; J2405; J2704; J3010; J7120; U0003; U0005

== ENCOUNTER → 2021-01-16 12:33 | Outpatient (CLI) | payer OTHER, SELFPAY ==
--- NOTE | ~2021-01-16 | XR_ITS ---
XR abdomen/kub 1V DATE: 01/16/2021 13:09 INDICATION: Left kidney stone TECHNIQUE: AP projection, 2 views COMPARISON: 12/22/2020 KUB FINDINGS: Left internal urinary stent has been removed since 12/22/2020. Calcified proximal left urete ral calcified stone is no longer evident. No visceromegaly is evident. No bowel obstruction. IMPRESSION: Removal of left internal urinary stent and resolution of left proximal ureteral calcified calculus since 12/22/2020 Reviewed, dictated and finalized at [facility]. Reviewed, dictated and finalized at location [facility]. IMPRESSION: Removal of left internal urinary stent and resolution of left proxi mal ureteral calcified calculus since 12/22/2020
== END ==
PROVIDERS: Visit Provider Urology
DX: N20.0 Calculus of kidney (principal)
CPT/HCPCS: 74018

== ENCOUNTER 2024-03-30 19:50 | Emergency (ER) | payer OTHER, SELFPAY ==
[2024-03-30 19:53] VITALS: BP 158/87; PULSE 66; RESP 20; TEMP 36.4; O2SAT 99
--- NOTE | 2024-03-31 00:39 | PC.NURSE ---
Patient come up to triage desk and advised that he was going to be leaving. Patient advised to go to nearest ED if sx gets worse. Patient exited ED with a steady gait.
== END 2024-03-31 02:48 | disposition left against medical advice (07) ==
DX: R10.9 Unspecified abdominal pain (principal)
CPT/HCPCS: 99199